=== PATIENT | male | born 1965 | race Caucasian/White ===

== ENCOUNTER 2017-06-14 15:21 | Emergency (ER) | payer BC ==
[2017-06-14 15:33] VITALS: BP 145/71; PULSE 70; RESP 16; TEMP 97.6; O2SAT 99
--- NOTE | 2017-06-14 15:51 | ED PDOC ---
HPI: Skin/Bite Injury Time Seen by Provider: 06/14/17 15:39 Chief Complaint (Nursing): Abnormal Skin Integrity Chief Complaint (Provider): Abnormal Skin Integrity History Per: Patient History/Exam Limitations: no limitations Onset/Duration Of Symptoms: Days (1x month) Current Symptoms Are (Timing): Still Present Location Of Injury: Anterior: Abdomen, Posterior: Back, Head (scalp) Quality Of Symptoms: Itching Severity: Moderate Additional Complaint(s): 51 year old male with a pertinent medical history of hypercholesterolemia presents to the ED with complaints of a rash that started 1x month ago. He reports that he thinks the rash started on his scalp, and he has used anti-itch shampoo with no relief. He reports that he has had a similar experience to this in his teens when he had eczema. He reports that the rash is also on his upper body. He denies trying new soaps and detergents, but notes that he started using Cerave lotion to try and relieve the itching, but has had no relief. He also reports taking Benadryl with no relief. PMD: Not provided. Past Medical History Reviewed: Historical Data, Nursing Documentation, Vital Signs Vital Signs: Last Vital Signs Temp 97.6 F 06/14/17 15:31 Pulse 70 06/14/17 15:31 Resp 16 06/14/17 15:31 BP 145/71 06/14/17 15:31 Pulse Ox 99 06/14/17 15:56 - Medical History PMH: Hypercholesterolemia - Surgical History Surgical History: No Surg Hx - Family History Family History: States: No Known Family Hx - Social History Current smoker - smoking cessation education provided: No Alcohol: None Drugs: Denies - Home Medications Home Medications: Ambulatory Orders Medication Instructions Recorded Famotidine [Pepcid] 20 mg PO DAILY #7 tab 06/14/17 predniSONE [predniSONE Tab] 20 mg PO DAILY #12 tab 06/14/17 - Allergies Allergies/Adverse Reactions: Allergies Allergy/AdvReac Type Severity Reaction Status Date / Time No Known Allergies Allergy Verified 06/14/17 15:31 Review of Systems ROS Statement: Except As Marked, All Systems Reviewed And Found Negative Skin: Positive for: Rash (on scalp and upper body) Physical Exam - Reviewed Nursing Documentation Reviewed: Yes Vital Signs Reviewed: Yes - Physical Exam Appears: Positive for: Well, Non-toxic, No Acute Distress Head Exam: Positive for: ATRAUMATIC, NORMOCEPHALIC Skin: Positive for: Warm, Dry, Rash (diffuse eryhtemetous rash with areas of scaling on the scalp, torso, and upper extremities. Possible blanching.) Eye Exam: Positive for: Normal appearance Neck: Positive for: Normal Cardiovascular/Chest: Positive for: Regular Rate, Rhythm Respiratory: Positive for: Normal Breath Sounds. Negative for: Respiratory Distress Neurologic/Psych: Positive for: Alert, Oriented (3x) - ECG O2 Sat by Pulse Oximetry: 99 (RA) Pulse Ox Interpretation: Normal Medical Decision Making Medical Decision Makin:39 Initial impression: 51 year old male with abnormal skin integrity. Initial plan: * solumedrol 125mg IM * reevaluation Scribe Attestation: Documented by Carmel Rodriguez, acting as a scribe for Jessica Boucher PA-C. Provider Scribe Attestation: All medical record entries made by the Scribe were at my direction and personally dictated by me. I have reviewed the chart and agree that the record accurately reflects my personal performance of the history, physical exam, medical decision making, and the department course for this patient. I have also personally directed, reviewed, and agree with the discharge instructions and disposition. Disposition - Clinical Impression Clinical Impression: Dermatitis - Disposition Disposition: Routine/Home Disposition Time: 15:56 Condition: STABLE Prescriptions: Famotidine [Pepcid] 20 mg PO DAILY #7 tab predniSONE [predniSONE Tab] 20 mg PO DAILY #12 tab Instructions: Dermatitis (ED) Forms: [employer] (Kiswahili)
== END 2017-06-14 16:26 | disposition home or self-care (01) ==
LOC: H.ER 15:21
DX: L30.9 Dermatitis, unspecified (principal); E78.00 Pure hypercholesterolemia, unspecified
CPT/HCPCS: 96372; 99281; J2930